=== PATIENT | male | born 1955 | race Two or more races ===

== ENCOUNTER 2021-12-10 10:28 | Emergency (ER) | payer MEDICARE, OTHER ==
[~2021-12-10] VITALS: Ht 157.5 cm; Wt 90.7 kg
--- NOTE | 2021-12-10 10:48 | NUR ---
[employer] Officer [place] [id number] here for TA
--- NOTE | 2021-12-10 11:01 | NUR ---
C/O HEAD AND CHEST PAIN PT AWAKE AND ALERT NO SOB
--- NOTE | 2021-12-10 11:02 | NUR ---
TO CT SCAN OF HEAD
[2021-12-10] MEDS ORDERED: FENTANYL PF 100MCG/2ML AMPUL ONE (11:11)
--- NOTE | 2021-12-10 11:16 | NUR ---
RECEIVED VERBAL ORDER OF 50MCG OF FENTANYL, READ BACK AND CARRIED OUT
[2021-12-10] MEDS ORDERED: FENTANYL PF 100MCG/2ML AMPUL IM ONE (11:30)
--- NOTE | 2021-12-10 12:06 | NUR ---
TAKEN TO CT VIA DILAN
[2021-12-10 13:24] VITALS: BP 130/64
--- NOTE | 2021-12-10 13:40 | NUR ---
Patient discharged to home in stable condition. Written and verbal after care instructions given. Patient verbalizes understanding of instruction.
== END 2021-12-10 13:42 | disposition home or self-care (01) ==
LOC: ER 10:33
DX: S09.90XA Unspecified injury of head, initial encounter (principal); R07.89 Other chest pain; M54.2 Cervicalgia; R51.9 Headache, unspecified; I10 Essential (primary) hypertension; E11.9 Type 2 diabetes mellitus without complications; Z85.118 Personal history of other malignant neoplasm of bronchus and lung; V89.2XXA Person injured in unspecified motor-vehicle accident, traffic, initial encounter; Y93.89 Activity, other specified; Y92.89 Other specified places as the place of occurrence of the external cause; Y99.8 Other external cause status
CPT/HCPCS: 70450; 71250; 72125; 96372; 99284; J3010